=== PATIENT | female | born 1990 | race Two or more races ===

== ENCOUNTER 2016-08-07 05:56 | Emergency (ER) | payer OTHER ==
[~2016-08-07] VITALS: Ht 162.6 cm; Wt 62.1 kg
[2016-08-07 06:13] VITALS: BP 122/62
[2016-08-07 07:29] LABS: BILIRUBIN,URINE NEGATIVE (NEG); GLUCOSE,URINE NEGATIVE (NEG); NITRITE,URINE NEGATIVE (NEG); PH,URINE 5.5; PROTEIN,URINE 30 mg/dL (NEG-TRACE); UROBILINOGEN,URINE 0.2 mg/dL (0.2 mg/dL)
--- NOTE | 2016-08-07 07:35 | PHYS DOC ---
Past Medical History Past Medical History: Other Additional Past Medical Histor: uti Past Surgical History: No Surgical History Alcohol Use: None Drug Use: None Adult General Chief Complaint Chief Complaint: PAIN ON URINATION [facility] HPI Patient is a 26 year old female presents to the emergency department stating that she woke up this morning with urinary frequency and pain. Patient states that she had a urinary tract infection approximately 3 months ago. She states that she was on an antibiotic although does not remember the name of the antibiotic. She states that she does get urinary tract infections frequently. She denies any back pain she denies any fever chills or nausea vomiting. She denies any vaginal discharge. Review of Systems Review of Systems Constitutional: Denies fever or chills [] Eyes: Denies change in visual acuity, redness, or eye pain [] HENT: Denies nasal congestion or sore throat [] Respiratory: Denies cough or shortness of breath [] Cardiovascular: No additional information not addressed in HPI [] GI: Denies abdominal pain, nausea, vomiting, bloody stools or diarrhea [] : dysuria denies hematuria [] Musculoskeletal: Denies back pain or joint pain [] Integument: Denies rash or skin lesions [] Neurologic: Denies headache, focal weakness or sensory changes [] Allergies Allergies Allergies Coded Allergies Type Severity Reaction Last Updated Verified No Known Drug Allergies 08/07/16 No Physical Exam Physical Exam Constitutional: Well developed, well nourished, no acute distress, non-toxic appearance. [] HENT: Normocephalic, atraumatic, bilateral external ears normal, oropharynx moist, no oral exudates, nose normal. [] Eyes: PERRLA, EOMI, conjunctiva normal, no discharge. [] Neck: Normal range of motion, no tenderness, supple, no stridor. [] Cardiovascular:Heart rate regular rhythm, no murmur [] Lungs & Thorax: Bilateral breath sounds clear to auscultation [] Abdomen: Bowel sounds hypoactive, soft, no tenderness, no masses, no pulsatile masses. [] Skin: Warm, dry, no erythema, no rash. [] Back: No tenderness, no CVA tenderness. [] Extremities: No tenderness, no cyanosis, no clubbing, ROM intact, no edema. [] Neurologic: Alert and oriented X 3, normal motor function, normal sensory function, no focal deficits noted. [] Psychologic: Affect normal, judgement normal, mood normal. [] Current Patient Data Vital Signs Vital Signs Date Time Temp Pulse Resp B/P Pulse Ox O2 Delivery O2 Flow Rate FiO2 08/07/16 06:13 97.6 84 16 122/62 100 Room Air 97.6 Lab Values Laboratory Tests Test 08/07/16 05:36 08/07/16 06:15 POC Urine HCG, Qualitative Hcg negative (Negative) Urine Collection Type Unknown Urine Color Yellow Urine Clarity Turbid Urine pH 5.5 Urine Specific [place] 1.020 Urine Protein 30mg/dL (NEG-TRACE) Urine Glucose (UA) Negativemg/dL (NEG) Urine Ketones (Stick) Negativemg/dL (NEG) Urine Blood Large (NEG) Urine Nitrite Negative (NEG) Urine Bilirubin Negative (NEG) Urine Urobilinogen Dipstick 0.2mg/dL (0.2 mg/dL) Urine Leukocyte Esterase Large (NEG) Urine RBC 3-5/HPF (0-2) Urine WBC Tntc/HPF (0-4) Urine Squamous Epithelial Cells Few/LPF Urine Bacteria Few/HPF (0-FEW) EKG EKG [] Radiology/Procedures Radiology/Procedures [] Course & Med Decision Making Course & Med Decision Making Pertinent Labs and Imaging studies reviewed. (See chart for details) Patient's urine is positive for urinary tract infection. She'll be provided with Macrobid and Pyridium here in the emergency department. She'll be provided with a prescription for the next 7 days for Macrobid 3 days for reading. Patient encouraged to drink plenty of fluids such as water and cranberry juice. Recommended to avoid cranberry juice cocktail carbonate beverages caffeine and alcohol and citrus fruits. Patient states that her last urinary tract infection was approximately 3 months ago. Patient will be provided with the urologist name and number to follow up with. Patient is provided with signs and symptoms to return back to emergency department. Patient agrees with discharge instructions treatment regimens and follow-up recommendations. [] Dragon Disclaimer Dragon Disclaimer This electronic medical record was generated, in whole or in part, using a voice recognition dictation system. Departure Departure Impression: Primary Impression: UTI (urinary tract infection) Disposition: 01 HOME, SELF-CARE Condition: STABLE Referrals: MYLES ONTIVEROS MD (PCP) DON CALDERA DO Patient Instructions: Urinary Tract Infection, [id number] Additional Instructions: Your urine was positive for urinary tract infection. Medication as prescribed. Pyridium will cause her urine to turn orange placed x-ray take precautions as this will stain clothing. Drink plenty of water and cranberry juice. Avoid cranberry juice cocktail, carbonated beverages, citrus fruits, alcohol, and caffeine as these are considered irritants to the bladder. Follow-up with the urologist in the next 7-10 days. Return back to emergency prior signs symptoms of become worse. Scripts Phenazopyridine Hcl (Pyridium)100 Mg [id number] Mg PO TID #9 TAB Prov:CRESENCIO OROPEZA APRN 08/07/16 Nitrofurantoin Monohyd/M-Cryst (Macrobid 100 Mg Capsule)100 Mg Capsule1 Cap PO BID #14 CAP Prov:CRESENCIO OROPEZA APRN 08/07/16 CRESENCIO OROPEZA APRN Aug 07, 2016 07:35
[2016-08-07 07:46] LABS: BACTERIA,URINE FEW /HPF (0-FEW); SQUAMOUS EPITHELIAL CELL,UR FEW /LPF; WBC,URINE TNTC /HPF (0-4)
[2016-08-07] MEDS ORDERED: NITR100C62 PO (07:53)
[2016-08-07] MEDS ORDERED: PHEN100T82 PO (07:53)
[2016-08-07] MEDS ORDERED: NITROFURANTOIN MONOHYD/M-CRYST 100 MG CAPSULE. PO ONE (08:00)
[2016-08-07] MEDS ORDERED: PHENAZOPYRIDINE 200 MG TABLET. PO ONE (08:00)
== END 2016-08-07 07:58 | disposition home or self-care (01) ==
LOC: ER 05:56
DX: N39.0 Urinary tract infection, site not specified (principal)
CPT/HCPCS: 81001; 81025; 87086; 99284

== ENCOUNTER → 2016-09-25 | Outpatient (CLI) | payer OTHER ==
[~2016-09-25] MED LIST: NITR100C62 PO; PHEN100T82 PO
--- NOTE | 2016-09-25 11:17 | RAD ---
Indication:Abdominal pain Grayscale images of the abdomen were obtained. Comparison none Liver:Normal Gallbladder:Normal. The common bile duct diameter of approximately 2 mm is also Spleen:Normal Pancreas:The head and visualized body appeared unremarkable. The more distal body was obscured. Kidneys:Normal Abdominal aorta and IVC:Normal Ancillary findings:None Impression:Normal study
== END | disposition home or self-care (01) ==
LOC: US 10:20
PROVIDERS: ATTEND Family Medicine
DX: R10.9 Unspecified abdominal pain (principal)
CPT/HCPCS: 76700

== ENCOUNTER 2017-07-06 12:15 | Emergency (ER) | payer OTHER ==
[2017-07-06] MEDS: LIDOCAINE WITH 8.4% SOD BICARB 3 ML DISP.SYRIN. INJ (13:10)
== END 2017-07-06 13:55 | disposition home or self-care (01) ==
LOC: ER 12:15
DX: L02.215 Cutaneous abscess of perineum (principal)
CPT/HCPCS: 56405; 99283; 99284